=== PATIENT | male | born 1950 | race Caucasian/White ===

== ENCOUNTER 2021-03-16 09:47 | Outpatient (CLI) | payer OTHER, SELFPAY ==
--- NOTE | ~2021-03-16 | MR_ITS ---
EXAMINATION: MR pelvis wo/w con DATE: 03/16/2021 11:26 INDICATION: Malignant neoplasm of the prostate TECHNIQUE: Magnetic resonance imaging (MRI) of the pelvis was performed without and with 19 mL Multih ance intravenous contrast. Fullfield sequences of the pelvis included axial and coronal T2-weighted S S FSE, axial, sagittal and coronal 2D FIESTA, axial 2D FIESTA FS, axial SSFSE-IR PADMINI, axial dual-echo T1-weighted FSPGR, axial and coronal T1 weighted LAVA, 3D axial T2 Cube, axial diffusion-weighted SE with apparent diffusion coefficient (ADC) maps. Postcontrast sequences included a time course axial T1-weighted LAVA and sagittal and coronal T1-weighted LAVA. COMPARISON: None. FINDINGS: Postoperative change of prior prostatectomy. Bladder is normal. Visualized bowels are unremarkable. S mall bilateral fat-containing inguinal hernias, left greater than right. No pathologically enlarged p elvic or inguinal lymphadenopathy. No free fluid in the pelvis. Moderate lumbar spondylosis. Normal b one marrow signal throughout. IMPRESSION: 1. Status post prostatectomy. No evident metastatic disease in the pelvis. Reviewed, dictated and finalized at location B. OM GRINDER
[2021-03-16 10:43] LABS: Estimated Glomerular Filt Rate > 60
== END 2021-03-16 09:48 | disposition home or self-care (01) ==
PROVIDERS: PCP Family Medicine; Visit Provider Radiology Radiation Oncology
DX: C61 Malignant neoplasm of prostate (principal); Z90.79 Acquired absence of other genital organ(s)
CPT/HCPCS: 72197; A9577